=== PATIENT | male | born 1955 | race Caucasian/White ===

== ENCOUNTER 2020-08-05 10:31 | Emergency (ER) | payer MEDICARE, BC ==
--- NOTE | 2020-08-05 11:31 | EDM.PDOC ---
ED HPI GENERAL MEDICAL PROBLEM - General Chief Complaint: Chest Pain Stated Complaint: CHEST PRESSURE/HEAD ACHE/ COUGH Time Seen by Provider: 08/05/20 10:46 Source of Information: Reports: Patient, RN Notes Reviewed - History of Present Illness INITIAL COMMENTS - FREE TEXT/NARRATIVE: 64 yr old male with onset of cough 2 to 3 days ago, pleuritic chest pain yesterday as well as pain with coughing, hemoptysis for about 1 1/2 hrs yesterday and than again this past morning. He feels mildly short of breath. No fever or chills. Hx Htn, renal insufficiency. He does not believe he is on a [place] blood thinners. Chest Pain Score (Numeric/FACES): 5 - Related Data Allergies Allergy/AdvReac Type Severity Reaction Status Date / Time No Known Allergies Allergy Verified 08/05/20 10:40 Home Meds: Home Meds Allopurinol [Zyloprim] 200 mg PO DAILY 08/05/20 [History] Ascorbic Acid [Vitamin C] 1,000 mg PO BID 08/05/20 [History] Calcium Carbonate [Calcium] 600 mg PO BID 08/05/20 [History] Collagenase Clostridium Hist. [Collagenase] 1 scoop PO DAILY 08/05/20 [History] Cyanocobalamin (Vitamin B12) [Vitamin B12] 1,000 mcg IM TH 08/05/20 [History] Furosemide [Lasix] 20 mg PO MOWEFR 08/05/20 [History] Glucosamine/Chondroiti/[id number] [Cosamin Asu Capsule] 2 tab PO DAILY 08/05/20 [History] Lactobacillus Combo No.10 [Probiotic] 1 dose PO DAILY 08/05/20 [History] Montelukast [Singulair] 10 mg PO DAILY 08/05/20 [History] Pantoprazole Sodium [Protonix] 40 mg PO BID 08/05/20 [History] Psyllium Husk (With Sugar) [Metamucil Free Powder] 2 tbsp PO DAILY 08/05/20 [History] Rizatriptan Benzoate [Rizatriptan] 10 mg PO Q2H PRN 08/05/20 [History] Sodium Bicarbonate 650 mg PO BID 08/05/20 [History] Sucralfate [Carafate] 1 gm PO BID 08/05/20 [History] Topiramate 50 mg PO BEDTIME 08/05/20 [History] Topiramate 100 mg PO DAILY 08/05/20 [History] Turmeric Root Extract [Turmeric Curcumin] 1,000 mg PO DAILY 08/05/20 [History] atorvaSTATin [Lipitor] 10 mg PO DAILY 08/05/20 [History] Past Medical History HEENT History: Reports: Cataract, Impaired Vision Other HEENT History: wears eyeglasses. Cardiovascular History: Reports: High Cholesterol Respiratory History: Reports: Pneumonia, Recurrent Gastrointestinal History: Reports: GERD Genitourinary History: Reports: Renal Disease Other Genitourinary History: Stage 3 kidney disease, GFR--38. Musculoskeletal History: Reports: Fracture Neurological History: Reports: Migraines - Infectious Disease History Infectious Disease History: Reports: Chicken Pox, Measles - Past Surgical History GI Surgical History: Reports: Appendectomy Musculoskeletal Surgical History: Reports: Other (See Below) Other Musculoskeletal Surgeries/Procedures:: 3 vertebraes fused. Social & Family History - Tobacco Use Tobacco Use Status *Q: Never Tobacco User Second Hand Smoke Exposure: No - Caffeine Use Caffeine Use: Reports: None - Recreational Drug Use Recreational Drug Use: No ED ROS GENERAL - Review of Systems Review Of Systems: See Below Constitutional: Denies: Fever, Chills, Diaphoresis HEENT: Reports: No Symptoms Respiratory: Reports: Shortness of Breath, Pleuritic Chest Pain, Cough, Hemoptysis Cardiovascular: Reports: Chest Pain GI/Abdominal: Denies: Nausea, Vomiting Musculoskeletal: Reports: No Symptoms. Denies: Neck Pain, Shoulder Pain, Arm Pain Skin: Reports: No Symptoms Neurological: Reports: No Symptoms ED EXAM, GENERAL - Physical Exam Exam: See Below General Appearance: Alert, No Apparent Distress Eye Exam: Bilateral Eye: PERRL Head: Atraumatic Neck: Normal Inspection, Supple Respiratory/Chest: No Respiratory Distress, Lungs Clear, Normal Breath Sounds. No: Rales, Rhonchi, Wheezing Cardiovascular: Regular Rate, Rhythm GI/Abdominal: Non-Tender Extremities: No: Pedal Edema, Leg Pain, Increased Warmth, Redness Neurological: Alert, Oriented, No Motor/Sensory Deficits #1 Interpretation EKG Date: 08/05/20 Rhythm: NSR [place]: Normal P-Wave: Present QRS: Normal ST-T: Other (mild nonspecific changes, no significant elevation or depression) Course - Vital Signs Last Recorded V/S: Last Vital Signs Temp 98.8 F 08/05/20 14:39 Pulse 64 08/05/20 14:39 Resp 19 08/05/20 14:39 BP 123/83 08/05/20 14:39 Pulse Ox 97 08/05/20 14:39 - Orders/Labs/Meds Orders: Active Orders 24 hr Category Date Time Status EKG 12 Lead [EKG Documentation Completion] [RC] STAT Care 08/05/20 11:10 Active Heparin Sodium/D5W [Heparin 25,000 Units in D5W 500 ML] Med 08/05/20 15:00 Active 25,000 units in 500 ml IV TITRATE Lactated Ringers [Ringers, Lactated] 1,000 ml Med 08/05/20 14:15 Active IV ASDIRECTED Sodium Chloride 0.9% [Normal Saline] 100 ml Med 08/05/20 14:30 Active IV ASDIRECTED Sodium Chloride 0.9% [Saline Flush] Med 08/05/20 14:20 Active 10 ml FLUSH ONETIME PRN Medication Orders Lactated Ringer's (Ringers, Lactated) 1,000 mls @ 150 mls/hr IV ASDIRECTED WENDY Last Admin: 08/05/20 14:38 Dose: 150 mls/hr Documented by: SARY Sodium Chloride (Normal Saline) 100 mls @ 75 mls/hr IV ASDIRECTED WENDY Last Admin: 08/05/20 14:37 Dose: 75 mls/hr Documented by: PRESTON Heparin Sodium/Dextrose (Heparin 25,000 Units In D5w 500 Ml) 25,000 units in 500 mls @ 34.291 mls/hr IV TITRATE WENDY; Protocol Last Admin: 08/05/20 15:16 Dose: 18 units/kg/hr, 34.291 mls/hr Documented by: SARY Cosigned by: RAINE Sodium Chloride (Saline Flush) 10 ml FLUSH ONETIME PRN PRN Reason: IV FLUSH Last Admin: 08/05/20 14:37 Dose: 10 ml Documented by: PRESTON Labs: Laboratory Tests 08/05/20 08/05/20 08/05/20 Range/Units 10:45 10:45 11:09 WBC 8.57 (4.23-9.07) K/mm3 RBC 5.11 (4.63-6.08) M/mm3 Hgb 15.2 (13.7-17.5) gm/dl Hct 45.9 (40.1-51.0) % MCV 89.8 (79.0-92.2) fl MCH 29.7 (25.7-32.2) pg MCHC 33.1 (32.2-35.5) g/dl RDW Std Deviation 47.3 H (35.1-43.9) fL Plt Count 204 (163-337) K/mm3 MPV 10.0 (9.4-12.3) fl Neut % (Auto) 79.3 H (34.0-67.9) % Lymph % (Auto) 14.2 L (21.8-53.1) % [place] % (Auto) 5.4 (5.3-12.2) % Eos % (Auto) 0.9 (0.8-7.0) Baso % (Auto) 0.1 (0.1-1.2) % Neut # (Auto) 6.79 H (1.78-5.38) K/mm3 Lymph # (Auto) 1.22 L (1.32-3.57) K/mm3 [place] # (Auto) 0.46 (0.30-0.82) K/mm3 Eos # (Auto) 0.08 (0.04-0.54) K/mm3 Baso # (Auto) 0.01 (0.01-0.08) K/mm3 D-Dimer, Quantitative 4.22 H (0.19-0.50) mg/L Sodium (136-145) mEq/L Potassium (3.5-5.1) mEq/L Chloride (98-107) mEq/L Carbon Dioxide (21-32) mEq/L Anion Gap (5-15) BUN (7-18) mg/dL Creatinine (0.7-1.3) mg/dL Est Cr Clr Drug Dosing mL/min Estimated GFR (MDRD) (>60) mL/min BUN/Creatinine Ratio (14-18) Glucose (80-115) mg/dL Calcium (8.5-10.1) mg/dL Total Bilirubin (0.2-1.0) mg/dL AST (15-37) U/L ALT (16-63) U/L Alkaline Phosphatase (46-116) U/L Troponin I (0.00-0.056) ng/mL C-Reactive Protein 2.4 H* (<1.0) mg/dL NT-Pro-B Natriuret Pep (0-125) pg/mL Total Protein (6.4-8.2) g/dl Albumin (3.4-5.0) g/dl Globulin gm/dL Albumin/Globulin Ratio (1-2) SARS-CoV-2 RNA (JEANNETTE) (NEGATIVE) 08/05/20 08/05/20 08/05/20 Range/Units 11:09 11: 12:10 WBC (4.23-9.07) K/mm3 RBC (4.63-6.08) M/mm3 Hgb (13.7-17.5) gm/dl Hct (40.1-51.0) % MCV (79.0-92.2) fl MCH (25.7-32.2) pg MCHC (32.2-35.5) g/dl RDW Std Deviation (35.1-43.9) fL Plt Count (163-337) K/mm3 MPV (9.4-12.3) fl Neut % (Auto) (34.0-67.9) % Lymph % (Auto) (21.8-53.1) % [place] % (Auto) (5.3-12.2) % Eos % (Auto) (0.8-7.0) Baso % (Auto) (0.1-1.2) % Neut # (Auto) (1.78-5.38) K/mm3 Lymph # (Auto) (1.32-3.57) K/mm3 [place] # (Auto) (0.30-0.82) K/mm3 Eos # (Auto) (0.04-0.54) K/mm3 Baso # (Auto) (0.01-0.08) K/mm3 D-Dimer, Quantitative (0.19-0.50) mg/L Sodium 141 (136-145) mEq/L Potassium 3.7 (3.5-5.1) mEq/L Chloride 108 H (98-107) mEq/L Carbon Dioxide 24 (21-32) mEq/L Anion Gap 12.7 (5-15) BUN 17 (7-18) mg/dL Creatinine 1.8 H (0.7-1.3) mg/dL Est Cr Clr Drug Dosing 46.10 mL/min Estimated GFR (MDRD) 38 (>60) mL/min BUN/Creatinine Ratio 9.4 L (14-18) Glucose 106 (80-115) mg/dL Calcium 8.8 (8.5-10.1) mg/dL Total Bilirubin 0.8 (0.2-1.0) mg/dL AST 13 L (15-37) U/L ALT 19 (16-63) U/L Alkaline Phosphatase 64 (46-116) U/L Troponin I < 0.017 (0.00-0.056) ng/mL C-Reactive Protein (<1.0) mg/dL NT-Pro-B Natriuret Pep 274 H (0-125) pg/mL Total Protein 7.2 (6.4-8.2) g/dl Albumin 3.3 L (3.4-5.0) g/dl Globulin 3.9 gm/dL Albumin/Globulin Ratio 0.9 L (1-2) SARS-CoV-2 RNA (JEANNETTE) Negative (NEGATIVE) Meds: Medications Generic Name Dose Route Start Last Admin Trade Name Freq PRN Reason Stop Dose Admin Lactated Ringer's 1,000 mls @ 150 mls/hr 08/05/20 14:15 08/05/20 14:38 Ringers, Lactated IV 150 mls/hr ASDIRECTED WENDY Administration Sodium Chloride 100 mls @ 75 mls/hr 08/05/20 14:30 08/05/20 14:37 Normal Saline IV 75 mls/hr ASDIRECTED WENDY Administration Heparin Sodium/Dextrose 25,000 units in 500 mls @ 34.291 mls/hr 08/05/20 15:00 08/05/20 15:16 Heparin 25,000 Units In D5w 500 Ml IV 18 units/kg/hr TITRATE WENDY 34.291 mls/hr Administration Protocol 18 UNITS/KG/HR Sodium Chloride 10 ml 08/05/20 14:20 08/05/20 14:37 Saline Flush FLUSH 10 ml ONETIME PRN Administration IV FLUSH Discontinued Medications Generic Name Dose Route Start Last Admin Trade Name Freq PRN Reason Stop Dose Admin Heparin Sodium (Porcine) 5,000 units 08/05/20 14:55 08/05/20 15:14 Heparin Sodium IVPUSH 08/05/20 14:56 5,000 units .BOLUS ONE Administration Sodium Chloride 100 mls @ 75 mls/hr 08/05/20 12:00 Normal Saline IV ASDIRECTED WENDY Sodium Chloride 1,000 mls @ 999 mls/hr 08/05/20 12:00 Normal Saline IV ONETIME WENDY Lactated Ringer's 1,000 mls @ 999 mls/hr 08/05/20 12:01 08/05/20 12:23 Ringers, Lactated IV 08/05/20 13:01 999 mls/hr .BOLUS ONE Administration Iopamidol 100 ml 08/05/20 11:51 Isovue-370 (76%) IVPUSH 08/05/20 11:52 ONETIME ONE Iopamidol 100 ml 08/05/20 14:20 08/05/20 14:37 Isovue-370 (76%) IVPUSH 08/05/20 14:21 100 ml ONETIME ONE Administration Sodium Chloride 10 ml 08/05/20 11:51 Saline Flush FLUSH ONETIME PRN IV FLUSH - Re-Assessments/Exams Free Text/Narrative Re-Assessment/Exam: 08/05/20 11:40. D Dimer came back elevated at 4.2. creat 1.8. Egfr 38. CXR nl. He needs a CT pul angio. Pt reluctant to have that done, worried about possible kidney damage from the dye. I did consult with Dr Jefferson, his robot programmer who advises to give 1 liter LR first, than do the CT angio with obvious need to rule out or rule in PE. Pt after that knowledge is willing to proceed and get that done. 08/05/20 15:25. He does have multiple subsegmental PE all R lobes, L upper lobe and lingula. Have given heparin bolus, started on heparin drip. We have no beds, we are once again on full diversion for admissions. Have arranged for him to be admitted [facility], Dr Garcia, Hospitalist accepting Phys. He will be direct admit. We will transfer him by ground ambulance. Departure - Departure Time of Disposition: 16:18 Disposition: Home, Self-Care 01 Condition: Fair Clinical Impression: Hemoptysis, Renal insufficiency Pulmonary emboli Qualifiers: Pulmonary embolism type: multiple subsegmental (without acute cor pulmonale) Qualified Code(s): I26.94 - Multiple subsegmental pulmonary emboli without acute cor pulmonale Referrals: Joanie Jackson MD [Primary Care Provider] - Forms: ED Department Discharge Sepsis Event Note (ED) - Evaluation Sepsis Screening Result: No Definite Risk - Focused Exam Vital Signs: Vital Signs Temp Pulse Resp BP Pulse Ox 08/05/20 14:39 98.8 F 64 19 123/83 97 08/05/20 10:35 98.0 F 86 19 133/69 98 - My Orders Last 24 Hours: My Active Orders 08/05/20 11:10 EKG 12 Lead [EKG Documentation Completion] [RC] STAT 08/05/20 14:15 Lactated Ringers [Ringers, Lactated] 1,000 ml IV ASDIRECTED 08/05/20 14:20 Sodium Chloride 0.9% [Saline Flush] 10 ml FLUSH ONETIME PRN 08/05/20 14:30 Sodium Chloride 0.9% [Normal Saline] 100 ml IV ASDIRECTED 08/05/20 15:00 Heparin Sodium/D5W [Heparin 25,000 Units in D5W 500 ML] 25,000 units in 500 ml IV TITRATE - Assessment/Plan Last 24 Hours: My Active Orders 08/05/20 11:10 EKG 12 Lead [EKG Documentation Completion] [RC] STAT 08/05/20 14:15 Lactated Ringers [Ringers, Lactated] 1,000 ml IV ASDIRECTED 08/05/20 14:20 Sodium Chloride 0.9% [Saline Flush] 10 ml FLUSH ONETIME PRN 08/05/20 14:30 Sodium Chloride 0.9% [Normal Saline] 100 ml IV ASDIRECTED 08/05/20 15:00 Heparin Sodium/D5W [Heparin 25,000 Units in D5W 500 ML] 25,000 units in 500 ml IV TITRATE
[2020-08-05] MEDS ORDERED: Sodium Chloride 0.9% 10 ML Syringe FLUSH PRN ×2 (11:51→14:20)
[2020-08-05] MEDS ORDERED: Iopamidol 755 Mg/ML 100 ML Bottle IVPUSH ONE ×2 (11:51→14:20)
[2020-08-05] MEDS ORDERED: Sodium Chloride 0.9% 1,000 ML IV SCH (12:00)
[2020-08-05] MEDS ORDERED: Sodium Chloride 0.9% 100 ML IV SCH ×2 (12:00→14:30)
[2020-08-05] MEDS ORDERED: Lactated Ringers 1,000 ML IV ONE (12:01)
--- NOTE | 2020-08-05 12:49 | CR ---
PROCEDURE INFORMATION: Exam: XR Chest, 2 Views Exam date and time: 08/05/2020 11:19 AM Age: 64 years old Clinical indication: Chest pain, cough, hemoptysis TECHNIQUE: Imaging protocol: XR of the chest Views: 2 views. COMPARISON: No relevant prior studies available. FINDINGS: Lungs: No lung mass, pneumonia or pulmonary edema. Pleural space: No pleural effusion or pneumothorax. Heart/Mediastinum: The cardiac silhouette is not enlarged. The mediastinal contours are normal. Bones/joints: Prior anterior cervical fusion. Curvature of the upper thoracic spine convex to the right. Multilevel disc degeneration in the thoracic spine. IMPRESSION: No acute abnormality. Given the history, consider CT CHEST, preferably with IV contrast. Thank you for allowing us to participate in the care of your patient. Dictated and Authenticated by: Fidencio Amin MD 08/05/2020 12:45 PM Central Time ([place] & [place]) [place]
[2020-08-05] MEDS ORDERED: Lactated Ringers 1,000 ML IV SCH (14:15)
[2020-08-05] MEDS ORDERED: Heparin Sodium 5,000 Units/ML Vial IVPUSH ONE (14:55)
--- NOTE | 2020-08-05 14:56 | CT ---
"PROCEDURE INFORMATION: Exam: CT Angiography Chest With Contrast Exam date and time: 08/05/2020 2:16 PM Age: 64 years old Clinical indication: Abnormal findings; Abnormal diagnostic tests; Patient HX: Chest pain elevated d-dimer TECHNIQUE: Imaging protocol: Computed tomographic angiography of the chest with intravenous contrast. 3D rendering (Not supervised by radiologist): MIP and/or 3D reconstructed images were created by the technologist. Contrast material: ISOVUE 370; Contrast volume: 100 ml; Contrast route: INTRAVENOUS (IV); COMPARISON: DX Chest 2V 08/05/2020 11:19 AM FINDINGS: Pulmonary arteries: Filling defects in subsegmental branches of the right upper, middle, and lower lobes and in the left upper lobe and lingula. These are consistent with pulmonary emboli. Consolidation or atelectasis in right lung base posteriorly. Aorta: Ectatic ascending thoracic aorta measuring approximately 4 x 4 cm in AP and transverse dimensions.. No aortic dissection. Lungs: Focal atelectasis in the lingula. Rounded 1 cm subpleural nodule in left lung base, best seen on axial series 5, image 83 this is indeterminate. This does not demonstrate appreciable enhancement and could be of benign or malignant etiology. Pleural space: Small right pleural effusion. Heart: Unremarkable. No cardiomegaly. No pericardial effusion. Lymph nodes: Unremarkable. No enlarged lymph nodes. Gallbladder and bile ducts: Bulky cholelithiasis. Bones/joints: Anterior wedging of several thoracic vertebral bodies. Anterior plate and screw fixation visualized lower cervical spine. Anterior endplate osteophyte formation in the thoracic spine. KITTY LEONG | Final Radiology Report CONFIDENTIALITY STATEMENT This report is intended only for use by the referring physician, and only in accordance with law. If you received this in error, call [phone]. Page 2 of 2 Soft tissues: Unremarkable. Other findings: Small esophageal hiatal hernia. IMPRESSION: 1. Pulmonary emboli in subsegmental branches of the right upper, middle, and lower lobes and left upper lobe and lingula. 2. Small right pleural effusion with consolidation or atelectasis in the dependent right lower lobe. 3. Indeterminate 1 cm pleural nodule left lung base could be benign or malignant etiology. For both low risk and high risk patients, consider CT Chest at 3 months, PET/CT, or biopsy. (Reference: Kylee) REFERENCES: Kylee Campa et al. Guidelines for Management of Incidental Pulmonary Nodules Detected on CT Images: From the Fleischner Society 2017. Radiology. 2017;284(1):228-243. THIS REPORT CONTAINS FINDINGS THAT MAY BE CRITICAL TO PATIENT CARE. The findings were verbally communicated via telephone conference with STUART CHRISTOPHER at 3:49 PM BRUSH CUTTER on 08/05/2020. The findings were acknowledged and understood. Thank you for allowing us to participate in the care of your patient. Dictated and Authenticated by: Ivette Lindo MD 08/05/2020 3:52 PM Central Time ([place] & [place]) [facility]"
[2020-08-05] MEDS ORDERED: Heparin Sodium/D5W 25,000 UNITS/500 ML BAG IV SCH (15:00)
== END 2020-08-05 16:41 | disposition home or self-care (01) ==
LOC: JD.ED 10:31
DX: I26.94 Multiple subsegmental thrombotic pulmonary emboli without acute cor pulmonale (principal); R04.2 Hemoptysis; N28.9 Disorder of kidney and ureter, unspecified; E78.00 Pure hypercholesterolemia, unspecified; K21.9 Gastro-esophageal reflux disease without esophagitis; Z79.899 Other long term (current) drug therapy; Z20.828 Contact with and (suspected) exposure to other viral communicable diseases
CPT/HCPCS: 36415; 71046; 71275; 80053; 83880; 84484; 85025; 85379; 86140; 93005; 96365; 99285; J1644; J7120; Q9967; U0002; 93010; 99284